=== PATIENT | female | born 1975 | race Asian ===

== ENCOUNTER 2024-04-05 22:56 | Observation (INO) | payer OTHER ==
[2024-04-06 00:37] LABS: Absolute Eosinophils 0.1 K/uL (0-0.5); Absolute Lymphocytes (CBC) 1.8 K/uL (0.7-4.9); Absolute Monocytes 0.4 K/uL (0.1-1.3); Absolute Neutrophil 1.9 K/uL (1.8-8.0); Basophils % 0.7 % (0-1.3); Eosinophils % 2.4 % (0-4.4); Hematocrit 38.2 % (36.0-45.0); Hemoglobin 13.1 g/dL (12.0-15.0); MCH 29.6 pg (27.0-35.0); MCHC 34.2 g/dL (32.0-36.0); MCV 86.7 fL (80-100); MPV 9.7 fL (7.6-11.3); Monocytes % 9.9 % (3.3-12.3); Nucleated Red Blood Cells % 0.1 % (0-0); Platelets 229 thou/uL (152-406); Red Cell Distribution Width 13.6 % (12.1-15.2)
[2024-04-06 00:43] LABS: ALT/SGPT 22 U/L (13-56); Albumin 3.6 g/dL (3.4-5.0); Albumin/Globulin Ratio 1.2 (1.1-1.8); Alkaline Phosphatase 67 U/L (45-117); Anion Gap 5.8 mEq/L (5.0-15.0); BUN Blood Urea Nitrogen 17 mg/dL (7-18); Bicarbonate 27 mEq/L (21-32); Bilirubin Total 0.3 mg/dL (0.2-1.0); Globulin 3.1 g/dL (2.3-3.5); Glomerular Filtration Rate 111 ml/min (=/>90); Glucose Level 116 mg/dL (74-106); NT PRO-BNP 12 pg/mL (<125); Protein, Total 6.7 g/dL (6.4-8.2); Sodium Level 138 mEq/L (136-145)
[2024-04-06 00:48] LABS: AST/SGOT 19 U/L (15-37); Bilirubin Direct < 0.1 mg/dL (0-0.2); Bilirubin Indirect, Calculated ND mg/dL (0.2-0.8); Potassium 3.8 mEq/L (3.5-5.1); Troponin High Sensitivity < 3.0 pg/mL (<58.9)
--- NOTE | 2024-04-06 01:10 | EDPHYS ---
Physician Documentation [facility] Name: Shruthi Leonard Age: 48 yrs Sex: Female : 1975 Arrival Date: 04/05/2024 Time: 22:56 Bed 17 Private MD: ED Physician Parish Estrella HPI: 04/05 23:26 This 48 yrs old Female presents to ER via Ambulatory with complaints of Chest rn Pressure, Chest Tightness, RT HAND PAIN/NUMBNESS. 23:26 The patient or guardian reports chest pain that is located primarily in the substernal rn area. Onset: 2 hour(s) ago. The pain radiates to the right arm. Associated signs and symptoms: Pertinent positives: nausea, Pertinent negatives: abdominal pain, cough, diaphoresis, lower extremity swelling, shortness of breath, syncope, vomiting. The chest pain is described as a heaviness. Duration: The patient or guardian reports a single episode, that is now resolved. Modifying factors: The symptoms are alleviated by nothing. the symptoms are aggravated by nothing. Severity of pain: At its worst the pain was moderate in the emergency department the pain has improved. The patient has not experienced similar symptoms in the past. Patient reports substernal chest heaviness that began during dinner, was at rest, did not feel like heartburn. Has never had pain like this before. Lasted for about 20 or 30 minutes and now resolved. Denies illness. No trauma. No shortness of breath. No history of DVT or PE.. 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 - Infectious Disease History:: Denies. - Social history:: Smoking status: Patient denies any tobacco usage or history of. - Family history:: not pertinent. - Hospitalizations: : No recent hospitalization is reported. ROS: 23:26 Constitutional: Negative for fever, chills, and weight loss, Neck: Negative for injury, rn pain, and swelling, Cardiovascular: Positive for chest pain Respiratory: Negative for shortness of breath, cough, wheezing, and pleuritic chest pain, Abdomen/GI: Positive for nausea, negative for abdominal pain Back: Negative for injury and pain, MS/Extremity: Negative for injury and deformity, Skin: Negative for injury, rash, and discoloration, Neuro: Negative for headache, weakness, numbness, tingling, and seizure, Exam: 23:26 Constitutional: This is a well developed, well nourished patient who is awake, alert, rn and in no acute distress. Cardiovascular: Regular rate and rhythm. No pulse deficits. Respiratory: No increased work of breathing, no retractions or nasal flaring. Abdomen/GI: Soft, nontender MS/ Extremity: Pulses equal, no cyanosis. Neurovascular intact. Full, normal range of motion. Equal circumference. Neuro: Awake and alert, GCS 15, oriented to person, place, time, and situation. 23:37 ECG was reviewed by the Attending Physician. rn Vital Signs: 23:13 BP 113 / 65; Pulse 63; Resp 12; Temp 97.8; Pulse Ox 100% ; Weight 52.16 kg; Height 5 bm8 ft. 0 in. ; Pain 5/10; 04/06 00:29 BP 93 / 52; Pulse 59; Pulse Ox 97% on R/A; Pain 3/10; tm6 04/05 23:13 Body Mass Index 22.46 (52.16 kg, 152.4 cm) bm8 04/05 23:13 Pain Scale: Adult bm8 04/06 00:29 Pain Scale: Adult tm6 MDM: 04/05 23:01 Patient medically screened. rn 04/06 01:05 Differential diagnosis: acute myocardial infarction, acute pericarditis, anxiety, rn coronary artery disease costochondritis, esophagitis, gastritis, gastroesophageal reflux disease (GERD), pericarditis, pleurisy. HEART Score: History: Highly Suspicious (2), ECG: Normal (0), Age: > 45 and < 65 years (1), Risk Factors: No Risk Factors Known (0), Troponin: < or = 1 x Normal Limit (0), Total Score = 3. Data reviewed: vital signs, nurses notes, lab test result(s), EKG, radiologic studies, plain films, and as a result, I will admit patient. Consideration of Admission/Observation Patient was admitted/placed on observation. Escalation of care including admission/observation considered. Counseling: I had a detailed discussion with the patient and/or guardian regarding the historical points, exam findings, and any diagnostic results supporting the discharge/admit diagnosis, lab results, radiology results, the need for further work-up and treatment in the hospital. Response to treatment: the patient's symptoms have resolved after treatment, and as a result, I will admit patient. 01:05 ED course: Patient with negative troponin and no ischemia on ECG. Chest pain had rn resolved upon arrival. No previous cardiac workup. Reports heaviness that radiates to the right arm and happened at rest, lasting for 30 minutes. Will admit for cardiac workup including possible echo and stress.. 04/05 23:13 Order name: Basic Metabolic Panel; Complete Time: 00:53 rn 04/05 23:13 Order name: CBC with Diff; Complete Time: 00:53 rn 04/05 23:13 Order name: LFT's; Complete Time: 00:53 rn 04/05 23:13 Order name: NT PRO-BNP; Complete Time: 00:53 rn 04/05 23:13 Order name: Troponin HS; Complete Time: 00:53 rn 04/06 01:48 Order name: Urinalysis w/ reflexes EDMS / 01:48 Order name: CBC with Automated Diff EDMS / 01:48 Order name: CBC with Automated Diff EDMS 05/ 01:48 Order name: Comprehensive Metabolic Panel EDMS 05/ 01:48 Order name: Comprehensive Metabolic Panel EDMS 05/ 01:48 Order name: Troponin High Sensitivity EDMS 05/06 01:48 Order name: Troponin High Sensitivity EDMS 05/06 01:48 Order name: Troponin High Sensitivity EDMS 05/06 01:48 Order name: Troponin High Sensitivity EDMS 05/06 07:39 Order name: Phosphorus EDMS 05/ 07:39 Order name: Magnesium EDMS / 23:13 Order name: XRAY Chest (1 view) rn 04/05 23:13 Order name: Cardiac monitoring; Complete Time: 23:18 rn 04/05 23:13 Order name: EKG - Nurse/Tech; Complete Time: 23:18 rn 04/05 23:13 Order name: IV Saline Lock; Complete Time: 23:31 rn 04/05 23:13 Order name: Labs collected and sent; Complete Time: 23:31 rn 04/05 23:13 Order name: O2 Per Protocol; Complete Time: 23:18 rn 04/05 23:13 Order name: O2 Sat Monitoring; Complete Time: 23:18 rn EC/05 23:37 Rate is 65 beats/min. Rhythm is regular. QRS [place] is Normal. NV interval is normal. QRS rn interval is normal. No Q waves. T waves are Normal. No ST changes noted. Clinical impression: Normal ECG. Interpreted by me. Reviewed by me. Administered Medications: No medications were administered Disposition Summary: 04/06/24 01:09 Hospitalization Ordered Notes: Hospitalization Status: Observation rn Provider: Edwardo Cross rn Condition: Stable(04/06/24 01:09) rn Problem: new(04/06/24 01:09) rn Symptoms: have improved(04/06/24 01:09) rn Bed/Room Type: Standard rn Location: Telemetry/MedSurg (observation)(04/06/24 10:28) bd Room Assignment: 217(04/06/24 10:28) bd Diagnosis - Chest pain, unspecified(04/06/24 01:09) rn Forms: - Medication Reconciliation Form rn - SBAR form rn - Leadership Thank You Letter rn Signatures: Dispatcher [employer] EDMS Chelsey Fitzgerald bd Parish Estrella MD MD rn Calcote, Vanessa RN RN vc1 Rolando Barrett, RN RN bm8 Corrections: (The following items were deleted from the chart) 23:13 23:13 BASIC METABOLIC PANEL+C.LAB.BRZ ordered. EDMS EDMS 23:13 23:13 CBC+H.LAB.BRZ ordered. EDMS EDMS 23:13 23:13 HEPATIC FUNCTION+C.LAB.BRZ ordered. EDMS EDMS 23:13 23:13 PROBNP+C.LAB.BRZ ordered. EDMS EDMS 23:13 23:13 Troponin High Sensitivity+C.LAB.BRZ ordered. EDMS EDMS 23:27 23:26 Constitutional: Negative for fever, chills, and weight loss, Neck: Negative for rn injury, pain, and swelling, Cardiovascular: Positive for chest pain Respiratory: Negative for shortness of breath, cough, wheezing, and pleuritic chest pain, Abdomen/GI: Negative for abdominal pain, nausea, vomiting, diarrhea, and constipation, Back: Negative for injury and pain, MS/Extremity: Negative for injury and deformity, Skin: Negative for injury, rash, and discoloration, Neuro: Negative for headache, weakness, numbness, tingling, and seizure, rn 04/06 01:09 01:09 Home rn rn : 01:09 new rn rn : 01:09 have improved rn rn : 01:09 Stable rn rn : 01:09 Chest pain, unspecified rn rn 01:36 01:09 Telemetry/MedSurg (observation) rn vc1 01:36 01:09 rn vc1 07:51 01:36 [facility] ER HOLD vc1 bd 07:51 01:36 ERHOLD- vc1 bd 07:55 07:51 Telemetry/MedSurg (observation) bd bd 07:55 07:51 401 bd bd 10:28 07:55 [facility] ER HOLD bd bd 10:28 07:55 ERHOLD- bd bd
--- NOTE | 2024-04-06 01:10 | ER ---
Nurse's Notes [facility] Name: Shruthi Leonard Age: 48 yrs Sex: Female : 1975 Arrival Date: 04/05/2024 Time: 22:56 Bed 17 Private MD: Diagnosis: Chest pain, unspecified Presentation: 04/05 23:13 Chief complaint: Patient states: I have a chest pressure for 15 mins, nausea and right bm8 hand cramps that I cant shake off. Coronavirus screen: Vaccine status: Patient reports receiving the 2nd dose of the covid vaccine. Ebola Screen: Patient negative for fever greater than or equal to 101.5 degrees Fahrenheit, and additional compatible Ebola Virus Disease symptoms Patient denies exposure to infectious person. Patient denies travel to an Ebola-affected area in the 21 days before illness onset. No symptoms or risks identified at this time. Initial Sepsis Screen: Does the patient meet any 2 criteria? No. Patient's initial sepsis screen is negative. Does the patient have a suspected source of infection? No. Patient's initial sepsis screen is negative. Risk Assessment: Do you want to hurt yourself or someone else? Patient reports no desire to harm self or others. Onset of symptoms was April 05, 2024 at 22:45. 23:13 Method Of Arrival: Ambulatory bm8 23:13 Acuity: HERNANDO 3 bm8 23:13 Acuity: HERNANDO 2 bm8 Triage Assessment: 23:14 General: Appears in no apparent distress. comfortable, Behavior is calm, cooperative, bm8 appropriate for age. Pain: Complains of pain in chest and right hand Pain does not radiate. Pain: Pain currently is 5 out of 10 on a pain scale. Quality of pain is described as crampy, pressure, Pain began 30 min ago. EENT: No deficits noted. No signs and/or symptoms were reported regarding the EENT system. Neuro: No deficits noted. Level of Consciousness is awake, alert, obeys commands, Oriented to person, place, time, situation, Teacher Lip Reading are equal bilaterally. Cardiovascular: Reports chest pain, Heart tones S1 S2 present Capillary refill < 3 seconds Patient's skin is warm and dry. Rhythm is sinus rhythm. Respiratory: No deficits noted. Airway is patent Trachea midline Respiratory effort is even, unlabored, Respiratory pattern is regular, symmetrical, Breath sounds are clear bilaterally. GI: Abdomen is flat, non-distended, Bowel sounds present X 4 quads. Abd is soft and non tender X 4 quads. Reports nausea. : No deficits noted. No signs and/or symptoms were reported regarding the genitourinary system. Derm: No deficits noted. No signs and/or symptoms reported regarding the dermatologic system. Musculoskeletal: Reports cramping in right hand. 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 - Infectious Disease History:: Denies. - Social history:: Smoking status: Patient denies any tobacco usage or history of. - Family history:: not pertinent. - Hospitalizations: : No recent hospitalization is reported. Screenin:32 [facility] ED Fall Risk Assessment (Adult) History of falling in the last 3 months, tm6 including since admission No falls in past 3 months (0 pts) Confusion or Disorientation No (0 pts) Intoxicated or Sedated No (0 pts) Impaired Gait No (0 pts) Mobility Assist Device Used No (0 pt) Altered Elimination No (0 pt) Score/Fall Risk Level 0 - 2 = Low Risk Oriented to surroundings, Maintained a safe environment. Abuse screen: Denies threats or abuse. Denies injuries from another. Nutritional screening: No deficits noted. Tuberculosis screening: No symptoms or risk factors identified. Assessment: 23:32 General: Appears in no apparent distress. Behavior is calm, cooperative. Pain: tm6 Complains of pain in right hand and chest Pain currently is 7 out of 10 on a pain scale. Quality of pain is described as crampy, heavy. Pain: Pain does not radiate. Pain:. Pain: Pain began 1 hour ago. Neuro: Cardiovascular: Patient's skin is warm and dry. Cardiovascular: Reports chest pain, Rhythm is sinus rhythm Chest pain is located in left began 1 hour prior to arrival. Respiratory: Airway is patent Respiratory effort is even, unlabored, Respiratory pattern is regular, symmetrical. GI: Abdomen is flat, non-distended. : No signs and/or symptoms were reported regarding the genitourinary system. EENT: No signs and/or symptoms were reported regarding the EENT system. Derm: No signs and/or symptoms reported regarding the dermatologic system. Musculoskeletal: Range of motion: intact in all extremities, Reports pain in right hand cramping. 04/06 00:29 Reassessment: No changes from previously documented assessment. Patient and/or family tm6 updated on plan of care and expected duration. Pain level reassessed. Patient is alert, oriented x 3, equal unlabored respirations, skin warm/dry/pink. Vital Signs: 04/05 23:13 BP 113 / 65; Pulse 63; Resp 12; Temp 97.8; Pulse Ox 100% ; Weight 52.16 kg; Height 5 bm8 ft. 0 in. ; Pain 5/10; 04/06 00:29 BP 93 / 52; Pulse 59; Pulse Ox 97% on R/A; Pain 3/10; tm6 04/05 23:13 Body Mass Index 22.46 (52.16 kg, 152.4 cm) bm8 04/05 23:13 Pain Scale: Adult bm8 04/06 00:29 Pain Scale: Adult tm6 ED Course: 04/05 22:58 Patient arrived in ED. ra3 23:01 Parish Estrella MD is Attending Physician. rn 23:03 Erick Warner, BILLY is Primary Nurse. tm6 23:14 Triage completed. bm8 23:14 Arm band placed on right wrist. Patient placed in an exam room, on a stretcher, on bm8 site monitor, on pulse oximetry. EKG completed in triage. Results shown to MD. 23:31 Basic Metabolic Panel Sent. tm6 23:31 CBC with Diff Sent. tm6 23:31 LFT's Sent. tm6 23:31 NT PRO-BNP Sent. tm6 23:31 Troponin HS Sent. tm6 23:31 Inserted saline lock: 20 gauge in right antecubital area, using aseptic technique. tm6 23:32 Patient has correct armband on for positive identification. Placed in gown. Bed in low tm6 position. Call light in reach. Side rails up X 1. Provided Education on: use of call baer. Client placed on continuous cardiac and pulse oximetry monitoring. NIBP monitoring applied. site monitor on. Pulse ox on. NIBP on. Door closed. Noise minimized. Lights dimmed. Warm blanket given. Pillow given. 23:32 O2 via room air. tm6 23:43 XRAY Chest (1 view) In Process Unspecified. EDMS 04/06 01:09 Edwardo Cross MD is Hospitalizing Provider. rn 02:10 No provider procedures requiring assistance completed. Patient admitted, IV remains in tm6 place. Administered Medications: No medications were administered Medication: 04/05 23:32 VIS not applicable for this client. tm6 Outcome: 04/06 01:09 Discharge ordered by . rn 01:09 Decision to Hospitalize by Provider. rn 02:10 Admitted to ER Hold. Please see [facility] for further documentation. tm6 02:10 Condition: stable 02:10 Instructed on the need for admit, 11:49 Patient left the ED. nj1 Signatures: Dispatcher [employer] EDRI Parish Estrella MD MD rn Jaco, Norma, RN RN nj1 Erick Warner RN RN tm6 Kyra Melvin 3 Rolando Barrett, RN RN bm8
[2024-04-06] MEDS ORDERED: ACETAMINOPHEN 325 MG TABLET PO PRN (01:42)
[2024-04-06] MEDS ORDERED: ONDANSETRON 4 MG/2 ML VIAL IV PRN (01:42)
--- NOTE | 2024-04-06 01:42 | P.HP ---
Certification for Inpatient Patient admitted to: Observation With expected LOS: <2 Midnights Practitioner: I am a practitioner with admitting privileges, knowledge of patient current condition, hospital course, and medical plan of care. Services: Services provided to patient in accordance with Admission requirements found in Title 42 Section 412.3 of the Code of Federal Regulations Patient History Date of Service: 04/06/24 Reason for admission: Chest Pain History of Present Illness: 48 yrs old Female with no significant past medical history came to ER with chest pain. Started 2 hours ago. Retrosternal in location and has been radiating to right arm. Associated with nausea. Denies any shortness of breath. No fever or chills. No sick contacts. Pain is sharp , Intermittent., Not associated with any diaphoresis. No relationship with exercise. Patient never had any history of CAD. Patient reports that the pain and heaviness began after dinner. Denies any heartburn. At the time of interview pain is relieved The patient was assessed in the ER and was admitted for further management as Chest pain rule out ACS Allergies No Known Allergies Allergy (Unverified 04/06/24 02:00) - Past Medical/Surgical History Past Medical History: Reviewed- Non-Contributory Past Surgical History: Reviewed- Non-Contributory - Family History Family History: Reviewed- Non-Contributory - Social History Smoking Status: Never smoker Review of Systems 10-point ROS is otherwise unremarkable Physical Examination - Vital Signs Temperature: 97.8 F Blood Pressure: 98/58 Pulse: 78 Respirations: 18 Pulse Ox (%): 95 - Physical Exam General: Alert, In no apparent distress, Oriented x3 HEENT: Atraumatic, Normocephalic Neck: Supple Respiratory: Clear to auscultation bilaterally, Normal air movement Cardiovascular: Normal pulses, Regular rate/rhythm, Normal S1 S2 Capillary refill: <2 Seconds Gastrointestinal: Soft and benign, Non-distended, W/out hepatosplenomegaly Musculoskeletal: No clubbing, No swelling, No contractures, No erythema Integumentary: No rashes, No breakdown Neurological: Normal speech, Normal strength at 5/5 x4 extr, Cranial nerves 3-12 intact Lymphatics: No axilla or inguinal lymphadenopathy - Studies Laboratory Data (last 24 hrs) 04/05/24 04/05/24 23:29 23:29 WBC 4.20 L Hgb 13.1 Hct 38.2 Plt Count 229 Sodium 138 Potassium 3.8 BUN 17 Creatinine 0.57 Glucose 116 H Total Bilirubin 0.3 AST 19 ALT 22 Alkaline Phosphatase 67 Assessment and Plan - Problems (Diagnosis) (1) Chest pain Current Visit: Yes Status: Acute Plan: Chest pain rule out ACS Will trend cardiac enzymes Will monitor telemetry Started on aspirin and statin EKG did not show any acute changes suggestive of ischemia Patient denies any chest pain at this time Will get an echocardiogram Cardiology consult if troponins are elevated GI/DVT prophylaxis Advanced directive full code Discharge Plan: Home Plan to discharge in: 24 Hours - Advance Directives Does patient have a Living Will: No Does patient have a Durable POA for Healthcare: No - Code Status/Comfort Care Code Status: Full Code Time Spent Managing Pts Care (In Minutes): 48
[2024-04-06 02:41] VITALS: BMI 22.2
[2024-04-06 07:38] LABS: Magnesium 2.2 mg/dL (1.6-2.4); Phosphorus 3.7 mg/dL (2.5-4.9)
[2024-04-06] MEDS ORDERED: ENOXAPARIN 40 MG/0.4 ML SQ ONE (08:52)
[2024-04-06] MEDS ORDERED: ASPIRIN EC 81 MG TAB PO ONE (08:52)
[2024-04-06] MEDS: ASPIRIN EC 81 MG TAB PO SCH (09:00)
[2024-04-06] MEDS: ENOXAPARIN 40 MG/0.4 ML SQ SCH (09:00)
[2024-04-06 12:01] VITALS: O2SAT 97
--- NOTE | 2024-04-06 12:11 | RAD REPORT ---
EXAM DESCRIPTION: RAD - Chest Single View - 04/05/2024 11:42 pm CLINICAL HISTORY: Chest Pain COMPARISON: None TECHNIQUE: Chest 1 View AP FINDINGS: Trachea midline. Heart size and pulmonary vessels within normal limits. Lungs clear without evidence of consolidation, mass, or significant pulmonary edema. No significant pleural effusion or pneumothorax. Mild symmetric bilateral mid lungs/chest density most likely represents overlying breast/chest wall a ttenuation artifact. Bones unremarkable. IMPRESSION: Unremarkable chest radiograph. Electronically signed by: Jordan Morales MD 04/06/2024 12:32 AM CDT Due to temporary technical issues with the PACS/Fluency reporting system, reports are being signed by the in house radiologist without review as a courtesy to ensure prompt reporting. The interpreting r adiologist is fully responsible for the content of the report.
--- NOTE | 2024-04-06 12:57 | P.DS ---
Admission Date: 04/06/24 Discharge Date: 04/06/24 Discharge Condition: GOOD Reason for Admission: Chest Pain Brief History of Present Illness: 48 yrs old Female with no significant past medical history came to ER with chest pain. Started 2 hours ago. Retrosternal in location and has been radiating to right arm. Associated with nausea. Denies any shortness of breath. No fever or chills. No sick contacts. Pain is sharp , Intermittent., Not associated with any diaphoresis. No relationship with exercise. Patient never had any history of CAD. Patient reports that the pain and heaviness began after dinner. Denies any heartburn. At the time of interview pain is relieved The patient was assessed in the ER and was admitted for further management as Chest pain rule out ACS Hospital Course: Pt is a 48 yo female with no significant past medical history who presented with chest pain. The chest pain started 2 hours before her arrival in the ER. It was retrosternal in location and radiated to the right arm. It progressively worsened and became associated with nausea which made her come to the ER. On admission troponin was negative time 3. We admitted her to rule out ACS but pt reqested to be discharged in order to meet an important appointment. 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 Pt was advised to make time for rest and also follow up with Dr. Al in clinic within 1 week. She was in NAD prior to discharge. Vital Signs/Physical Exam: Temp Pulse Resp BP Pulse Ox 97.5 F 69 16 112/73 100 04/06/24 08:56 04/06/24 08:56 04/06/24 08:56 04/06/24 08:56 04/06/24 08:56 Laboratory Data at Discharge: WBC 4.20 thou/uL (4.3-10.9) L 04/05/24 23:29 Hgb 13.1 g/dL (12.0-15.0) 04/05/24 23:29 Hct 38.2 % (36.0-45.0) 04/05/24 23:29 Plt Count 229 thou/uL (152-406) 04/05/24 23:29 Sodium 138 mEq/L (136-145) 04/05/24 23:29 Potassium 3.8 mEq/L (3.5-5.1) 04/05/24 23:29 BUN 17 mg/dL (7-18) 04/05/24 23:29 Creatinine 0.57 mg/dL (0.55-1.02) 04/05/24 23:29 Glucose 116 mg/dL (74-106) H 04/05/24 23:29 Phosphorus 3.7 mg/dL (2.5-4.9) 04/06/24 02:06 Magnesium 2.2 mg/dL (1.6-2.4) 04/06/24 02:06 Total Bilirubin 0.3 mg/dL (0.2-1.0) 04/05/24 23:29 AST 19 U/L (15-37) 04/05/24 23:29 ALT 22 U/L (13-56) 04/05/24 23:29 Alkaline Phosphatase 67 U/L (45-117) 04/05/24 23:29 Home Medications: Aspirin Chewable [Aspirin Chewable*] 81 mg PO DAILY 30 Days #30 tab.chew 04/06/24 New Medications: Aspirin Chewable [Aspirin Chewable*] 81 mg PO DAILY 30 Days #30 tab.chew Physician Discharge Instructions: Continue ad bhavana activity as tolerated. take aspirin and other home meds at home. Follow up with Dr. Al within 1 week in clinic. Diet: AHA Activity: Ad bhavana Followup: Mickey Al MD [ACTIVE - CAN ADMIT] -
[2024-04-06 14:11] VITALS: BP 120/58; TEMP 97.7
--- NOTE | 2024-04-06 14:38 | EKG ---
Test Date: 2024-04-05 Test Time: 23:04:52 Hand Shoe Cutter: MADYSON MEASUREMENT RESULTS: Intervals: Rate: 65 OK: 136 QRSD: 86 QT: 392 QTc: 407 [place]: P: 80 OK: 136 QRS: 72 T: 61 INTERPRETIVE STATEMENTS: Normal sinus rhythm Normal ECG No previous ECG available for comparison Electronically Signed On 04-06-24 14:37:05 CDT by Kumar Le
[2024-04-06] MEDS ORDERED: ATORVASTATIN 40 MG TAB PO SCH (21:00)
== END 2024-04-06 14:10 | disposition home or self-care (01) ==
LOC: ER 22:56 → ERHOLD 04-06 01:42 → 2ND 04-06 10:54
PROVIDERS: ADMIT Family Medicine; ATTEND Hospitalist
DX: R07.9 Chest pain, unspecified (principal); F43.9 Reaction to severe stress, unspecified; Z79.82 Long term (current) use of aspirin
CPT/HCPCS: 93005; 85025; 80048; 36415; 83735; 84100; 80076; 84484 ×3; 83880; 71045; 99285; J1650; G0378 ×3